=== PATIENT | female | born 2000 | race American Indian/Alaskan Native ===

== ENCOUNTER 2021-04-05 13:35 | Emergency (ER) | payer MEDICAID ==
[2021-04-05 13:52] VITALS: BP 138/82
--- NOTE | 2021-04-05 13:58 | Emergency Department Report ---
ED ENT HPI - General Chief complaint: Sore Throat Stated complaint: SWOLLEN TONSIL/WHITE PATCHES Source: patient Mode of arrival: Ambulatory Limitations: No Limitations - History of Present Illness Initial comments: The patient was evaluated in the emergency department for symptoms described in the history of present illness. He/she was evaluated in the context of the global COVID-19 pandemic, which necessitated consideration that the patient might be at risk for infection with the virus that causes COVID-19. Institutional protocols and algorithms that pertain to the evaluation of patients at risk for COVID-19 are in a state of rapid change based on information released by regulatory bodies including the CDC and federal and state organizations. These policies and algorithms were followed during the patient's care in the emergency department. Please note that these policies, procedures and recommendations changed on a rapid basis. 21-year-old -[place] female presents to the emergency room complaining of tonsil swelling on the right side with patches this morning. Patient denies any pain at this time. She denies any fever chills no nausea no vomiting. Patient denies any past medical history currently having no known drug allergies. -: Last night Location: throat Severity: mild Severity scale (0 -10): 0 - Related Data Previous Rx's Medication Instructions Recorded Last Taken Type Amoxicillin [Amoxicillin TAB] 875 mg PO BID 7 Days #14 tablet 04/05/21 Unknown Rx Allergies Allergy/AdvReac Type Severity Reaction Status Date / Time No Known Allergies Allergy Verified 04/05/21 13:50 ED Dental HPI - General Chief complaint: Sore Throat Stated complaint: SWOLLEN TONSIL/WHITE PATCHES Source: patient Mode of arrival: Ambulatory Limitations: No Limitations - Related Data Previous Rx's Medication Instructions Recorded Last Taken Type Amoxicillin [Amoxicillin TAB] 875 mg PO BID 7 Days #14 tablet 04/05/21 Unknown Rx Allergies Allergy/AdvReac Type Severity Reaction Status Date / Time No Known Allergies Allergy Verified 04/05/21 13:50 ED Review of Systems ROS: Stated complaint: SWOLLEN TONSIL/WHITE PATCHES Other details as noted in HPI Comment: All other systems reviewed and negative ED Past Medical Hx - Past Medical History Previous Medical History?: No - Surgical History Past Surgical History?: No - Medications Home Medications: Home Medications Medication Instructions Recorded Confirmed Last Taken Type Amoxicillin [Amoxicillin TAB] 875 mg PO BID 7 Days #14 tablet 04/05/21 Unknown Rx ED Physical Exam - General Limitations: No Limitations General appearance: alert, in no apparent distress - Head Head exam: Present: atraumatic, normocephalic - Eye Eye exam: Present: normal appearance - ENT ENT exam: Present: mucous membranes moist - Expanded ENT Exam Expanded Throat exam: Positive: tonsillar erythema, tonsillomegaly, tonsillar exudate - Neck Neck exam: Present: normal inspection, full ROM - Respiratory Respiratory exam: Absent: respiratory distress, accessory muscle use - Cardiovascular Cardiovascular Exam: Present: regular rate - Back Exam Back exam: Present: normal inspection - Neurological Exam Neurological exam: Present: alert, oriented X3, normal gait - Psychiatric Psychiatric exam: Present: normal affect, normal mood - Skin Skin exam: Present: warm, dry, intact, normal color. Absent: rash ED Course Vital Signs 04/05/21 13:50 Temperature 98.0 F Pulse Rate 96 H Respiratory 18 Rate Blood Pressure 138/82 O2 Sat by Pulse 100 Oximetry ED Medical Decision Making - Medical Decision Making 21-year-old -[place] female presents to the emergency room complaining of tonsil swelling on the right side with patches this morning. Patient denies any pain at this time. She denies any fever chills no nausea no vomiting. Patient denies any past medical history currently having no known drug allergies. Rapid strep obtained by this provider and sent to lab. Critical care attestation.: If time is entered above; I have spent that time in minutes in the direct care of this critically ill patient, excluding procedure time. ED Disposition Clinical Impression: Strep pharyngitis Disposition: 01 HOME / SELF CARE / HOMELESS Is pt being admited?: No Does the pt Need Aspirin: No Condition: Stable Instructions: Strep Throat, Adult, [id number] Additional Instructions: Strep test is positive for strep. Complete antibiotics. If you start to have any discomfort take Tylenol or ibuprofen. Change your toothbrush Prescriptions: Amoxicillin [Amoxicillin TAB] 875 mg PO BID 7 Days #14 tablet Referrals: [facility] [Provider Group] - 3-5 Days Forms: Work/School Release Form(ED) Time of Disposition: 15:28
== END 2021-04-05 15:39 | disposition home or self-care (01) ==
LOC: ED 13:35
DX: J02.0 Streptococcal pharyngitis (principal)
CPT/HCPCS: 87430; 99283

== ENCOUNTER 2021-07-23 08:22 | Emergency (ER) | payer MEDICAID ==
[2021-07-23 08:29] VITALS: BP 133/90
--- NOTE | 2021-07-23 08:43 | Emergency Department Report ---
ED Female HPI - General Chief complaint: Urogenital-Female Stated complaint: STD CHECK Time Seen by Provider: 07/23/21 08:34 Source: patient Mode of arrival: Ambulatory Limitations: No Limitations - Related Data Previous Rx's Medication Instructions Recorded Last Taken Type Amoxicillin [Amoxicillin TAB] 875 mg PO BID 7 Days #14 tablet 04/05/21 Unknown Rx Allergies Allergy/AdvReac Type Severity Reaction Status Date / Time No Known Allergies Allergy Verified 04/05/21 13:50 ED Review of Systems ROS: Stated complaint: STD CHECK Other details as noted in HPI ED Past Medical Hx - Medications Home Medications: Home Medications Medication Instructions Recorded Confirmed Last Taken Type Amoxicillin [Amoxicillin TAB] 875 mg PO BID 7 Days #14 tablet 04/05/21 Unknown Rx ED Physical Exam - General Limitations: No Limitations ED Course Vital Signs 07/23/21 08:26 Temperature 98.2 F Pulse Rate 98 H Respiratory 16 Rate Blood Pressure 133/90 O2 Sat by Pulse 97 Oximetry Critical care attestation.: If time is entered above; I have spent that time in minutes in the direct care of this critically ill patient, excluding procedure time. ED Disposition Condition: Stable Referrals: [facility], [Primary Care Provider] - 3-5 Days
--- NOTE | 2021-07-23 08:54 | Emergency Department Report ---
Chief Complaint: Urogenital-Female Stated Complaint: STD CHECK Time Seen by Provider: 07/23/21 08:34 - HPI History of Present Illness: 21-year-old -[place] female presents to the ER today with concern for exposure to syphilis. Patient states that her partner informed her yesterday that he was positive for syphilis. She states that she has been with this partner since March of last year. She states that she is unsure if the partner has been treated. She states that she had some brownish discharge last week, but she has not noticed it recently but she is also currently on her period. She denies any rash, or vaginal lesions. She denies any pelvic, ab dominal or back pain. She denies any UTI symptoms. She denies any fever or chills. - Exam Vital Signs: Vital Signs 07/23/21 08:26 Temperature 98.2 F Pulse Rate 98 H Respiratory 16 Rate Blood Pressure 133/90 O2 Sat by Pulse 97 Oximetry MSE screening note: Focused history and physical exam performed. Due to findings the following was ordered: ED Medical Decision Making - Medical Decision Making 21-year-old -[place] female presents to the ER today with concern for exposure to syphilis. Patient states that her partner informed her yesterday that he was positive for syphilis. She states that she has been with this partner since March of last year. She states that she is unsure if the partner has been treated. She states that she had some brownish discharge last week, but she has not noticed it recently but she is also currently on her period. She denies any rash, or vaginal lesions. She denies any pelvic, abdominal or back pain. She denies any UTI symptoms. She denies any fever or chills. 0900: Patient is well-appearing, nontoxic and not in significant distress. Vital signs are stable. She has no abdominal, back or pelvic pain. She has no UTI symptoms. She is currently on her period. She is here mainly because her partner informed her that he was positive for syphilis. Informed patient that at this time we are not doing syphilis testing through the ER. Informed her that she will need to follow-up with local ENVIRONMENTAL CONSULTANT or health department or urgent care to get that done. Informed her that they can also tested for HIV and hepatitis and other STDs like chlamydia and gonorrhea. At this time patient does not have a emergent medical conditions warranting emergent testing/treatment. Patient will be given referral information to local clinics. Patient expressed understanding. Patient was stable at time of discharge. ED Disposition for MSE Clinical Impression: Concern about STD in female without diagnosis, Exposure to syphilis Disposition: HOME / SELF CARE / HOMELESS Is pt being admited?: No Does the pt Need Aspirin: No Condition: Stable Instructions: Syphilis, Safe Sex Additional Instructions: I recommend that you follow-up with a local health department, urgent care or ENVIRONMENTAL CONSULTANT for STD testing including syphilis, hepatitis and HIV. Return to the ER if symptoms changes or worsens in any way. Referrals: [facility] [Provider Group] - 3-5 Days [facility] [Provider Group] - 3-5 Days [facility] [Provider Group] - 3-5 Days Forms: Work/School Release Form(ED) Time of Disposition: 08:53 ED Review of Systems ROS: Stated complaint: STD CHECK Other details as noted in HPI Comment: All other systems reviewed and negative Constitutional: denies: chills, diaphoresis, fever, malaise, weakness Eyes: denies: eye pain, eye discharge, vision change Respiratory: denies: cough, shortness of breath, SOB with exertion, SOB at rest, wheezing Cardiovascular: denies: chest pain, palpitations Gastrointestinal: denies: abdominal pain, nausea, diarrhea, constipation, hematemesis, melena, hematochezia Genitourinary: discharge. denies: urgency, dysuria, frequency, hematuria Musculoskeletal: denies: back pain, joint swelling, arthralgia Skin: denies: rash, lesions Neurological: denies: headache, weakness, numbness, paresthesias, confusion, abnormal gait, vertigo Psychiatric: denies: anxiety, depression, auditory hallucinations, visual hallucinations, homicidal thoughts, suicidal thoughts ED Physical Exam - General Limitations: No Limitations General appearance: alert, in no apparent distress - Respiratory Respiratory exam: Absent: respiratory distress - Cardiovascular Cardiovascular Exam: Present: regular rate - GI/Abdominal GI/Abdominal exam: Present: soft. Absent: distended, tenderness, guarding, rebound - Neurological Exam Neurological exam: Present: alert, oriented X3, CN II-XII intact, normal gait - Psychiatric Psychiatric exam: Present: normal affect, normal mood - Skin Skin exam: Present: intact
== END 2021-07-23 09:14 | disposition home or self-care (01) ==
LOC: ED 08:22
DX: Z20.2 Contact with and (suspected) exposure to infections with a predominantly sexual mode of transmission (principal)
CPT/HCPCS: 99282